=== PATIENT | female | born 1960 | race Caucasian/White ===

== ENCOUNTER 2020-02-21 12:48 | Emergency (ER) | payer OTHER, SELFPAY ==
--- NOTE | ~2020-02-21 | XR_ITS ---
EXAMINATION: [id number] DATE: 02/21/2020 13:20 INDICATION: Anterior right rib pain TECHNIQUE: A frontal inspiratory view of the chest and 4 views of the right ribs were obtained. COMPARISON: Chest radiograph dated FINDINGS: No rib fractures identified. No pneumothorax. No focal infiltrates, pleural effusion or pulmonary raul ma. Cardiomediastinal silhouette is normal. Post cystectomy clips the right upper quadrant. IMPRESSION: 1. No rib fracture or acute cardiopulmonary disease. Reviewed, dictated and finalized at location A.
[2020-02-21 12:57] VITALS: BP 182/76; PULSE 76; RESP 18; TEMP 36.2; O2SAT 100
--- NOTE | 2020-02-21 13:13 | ED.GENADULT ---
HPI - General Adult General Chief complaint: Unspecified Stated complaint: injured rib Time Seen by Provider: 02/21/20 13:13 Source: patient and RN notes reviewed Mode of arrival: ambulatory Limitations: no limitations History of Present Illness HPI narrative: 59 year old female who presents to [facility] care with complaints of right anterior chest rib pain since Thursday. Patient states she was lying on floor with daughter and daughter pushed herself up to standing position having her hand on the patient right upper back region, patient states that she felt a pop and has been experiencing pain to right anterior lateral right chest since. Patient denies any shortness of breat, states pain increases with movement and deep inspiration. Patient denies any hormone use, recent travel or history of blood clots or blood clotting disease. Patient has clear respirations on auscultation, no tachypnea or accessory muscle use, SAO2 100% on room air. Patient states that pain has been constant since Thursday. MD complaint: right anterior rib pain Onset (ago): day(s) (4-5 days) Location: chest (right anterior rib region) and right Radiation: non-radiation Severity: moderate Severity scale (1-10): 6 Quality: aching Pain Consistency: constant Relieving factors: rest Exacerbating factors: movement and other (deep inspiration) Associated symptoms: denies other symptoms Treatments prior to arrival: NSAID Related Data Allergies Allergy/AdvReac Type Severity Reaction Status Date / Time No Known Allergies Allergy Verified 02/21/20 13:03 Review of Systems Review of Systems: Narrative: CONSTITUTIONAL: Denies fever, chills, or sweats. EYES: Denies visual changes, redness, or discharge. ENT: Denies rhinorrhea, congestion, sore throat, or otalgia. CARDIOVASCULAR: positive for right anterior chest pain,no palpitations, or edema. RESPIRATORY: Denies cough or dyspnea. GASTROINTESTINAL: Denies abdominal pain, nausea, vomiting, or diarrhea. GENITOURINARY: Denies dysuria or hematuria. SKIN: Denies rash or itching. MUSCULOSKELETAL: Denies back pain, joint pain, or myalgia. NEUROLOGIC: Denies headache, numbness, or weakness. PSYCHIATRIC: Denies anxiety or depression. All systems reviewed & are unremarkable except as noted in HPI and below PMFSH Past Medical History Medical History (Updated 02/22/20 @ 15:09 by Angie Franklin NP) Diabetes Hyperlipidemia Hypertension Seasonal allergies Surgical History Surgical History (Updated 02/22/20 @ 15:11 by Angie Franklin NP) H/O section History of cholecystectomy S/P laparoscopic procedure Social History Social History (Updated 02/22/20 @ 15:11 by Angie Franklin NP) Smoking status: Never smoker Living arrangements: with family Gender identity (if verbalized by the patient): Female Comments At time of signature, agree with nursing past medical, surgical, social history. There is no relevant family history pertinent to the presenting complaint Exam Narrative: Exam Narrative: GENERAL: Well-appearing, well-nourished, and in no acute distress. HEAD: Normocephalic, atraumatic. EYES: PERRLA and EOMI. ENT: Nares clear, no rhinorrhea or epistaxis. Mucous membranes moist. NECK: Supple.no lymphadenopathy CHEST: Clear to auscultation. No respiratory distress.SAO2 100% on room air, discomfort to right anterior lateral chest along ribs increases with coughing, sneezing, movement and deep breathing, no dyspnea voiced HEART: Regular rate and rhythm. No murmur heard. Normal peripheral pulses. ABDOMEN: Soft, nontender, nondistended, normal active bowel sounds. EXTREMITIES: Normal range of motion. No edema. SKIN: Warm, dry, no rash. NEURO: No focal deficits. Alert and oriented x3. Course Vital Signs Vital signs: Vital Signs Temperature 36.2 C L 02/21/20 12:57 Pulse Rate 76 02/21/20 12:57 Respiratory Rate 18 02/21/20 12:57 Blood Pressure 182/76 H 02/21/20 12:57 Pulse Oximetry 100 07/
== END 2020-02-21 14:06 | disposition home or self-care (01) ==
PROVIDERS: Emergency Provider Registered Nurse; PCP Family Medicine
DX: M94.0 Chondrocostal junction syndrome [Tietze] (principal); R07.89 Other chest pain; E11.9 Type 2 diabetes mellitus without complications; E78.5 Hyperlipidemia, unspecified; I10 Essential (primary) hypertension
CPT/HCPCS: 71101; 99213; G0463

== ENCOUNTER 2020-07-30 14:28 | Emergency (ER) | payer OTHER, SELFPAY ==
--- NOTE | ~2020-07-30 | XR_ITS ---
EXAMINATION: XR chest 2V EXAM DATE: 07/30/2020 14:52 INDICATION: CHEST PAIN, SOB; hx of asthma, diabetes type 2, HTN . TECHNIQUE: Frontal and lateral projections of the chest obtained and reviewed. There is no prior marleny dy for comparison. FINDINGS: The lungs are clear. There are no pleural effusions. The cardiomediastinal silhouette is within normal limits. There is no pneumothorax suspected. The bones and soft tissues are unremarkab le. There are cholecystectomy clips. IMPRESSION: No acute cardiopulmonary findings. Reviewed, dictated and finalized at location B. INSPECTOR
[2020-07-30 14:35] VITALS: BP 187/90; PULSE 80; RESP 20; TEMP 36.6; O2SAT 99
--- NOTE | 2020-07-30 14:53 | ECG_ITS ---
Measurements Intervals [place] Rate: 70 P: 38 TN: 148 QRS: 43 QRSD: 96 T: 21 QT: 381 QTc: 412 Interpretive Statements SINUS RHYTHM WITH SINUS ARRHYTHMIA POSSIBLE LEFT VENTRICULAR HYPERTROPHY MINIMAL Q WAVES- DIFFUSE LEADS BASELINE ARTIFACT- I, II, III, AVL BORDERLINE ECG Electronically Signed On 07-30-2020 15:27:03 BIG DATA ENGINEER by Luke Tan D.O.
--- NOTE | 2020-07-30 15:39 | ED.GENADULT ---
HPI - General Adult General Chief complaint: Chest Pain Stated complaint: chest pain/shoulder blade pain Source: patient and RN notes reviewed Limitations: no limitations History of Present Illness HPI narrative: The obese patient- a non-smoker/nondrinker on several meds,inc for RAD, AODM- presents with lightheadedness and pains. Patient states she has a variety of symptoms that began before she was on quarantine about 2 weeks ago, before getting to negative Covid test X2 midmonth. She complains of improving cough, myalgias with headache, lightheadedness foggy, associated with palpitations and chest heaviness that last for seconds and occurs at rest. Heaviness is at anterior and posterior upper chest, especially in mostly posteriorly. Palpitations occurred intermittently about at most biweekly, with a heart rate measured [on her iWatch ] up to 140's. Symptoms are mild but persistent, unrelieved with a course of steroids; no sputum changes, precordial CP, calf pain/edema, S OB loss of taste/smell. Patient declines and repeatedly advised to go to higher-level care facility to higher level testing- because for early diagnosis of serious problems [ACS, A. fib, metabolic, etc.] clear specific symptoms do not develope until later Related Data Home Medications Medication Instructions Recorded Confirmed albuterol sulfate 2 puff INHALATION Q4-6H PRN 07/30/20 07/30/20 amlodipine 10 mg PO DAILY 07/30/20 07/30/20 atorvastatin 10 mg PO DAILY 07/30/20 07/30/20 cholecalciferol (vitamin D3) 50 mcg PO DAILY 07/30/20 07/30/20 [Vitamin D3] metformin 500 mg PO BID 07/30/20 07/30/20 metoprolol tartrate 50 mg PO BID 07/30/20 07/30/20 oxybutynin chloride 5 mg PO BID 07/30/20 07/30/20 prednisone 20 mg PO .ASDIRECTED 07/30/20 07/30/20 Allergies Allergy/AdvReac Type Severity Reaction Status Date / Time No Known Allergies Allergy Verified 07/30/20 14:41 Review of Systems Review of Systems: Narrative: General/Constitutional: No weight loss,fever Eyes: N0: Redness,discharge Ears/Nose/Throat: No: Epistaxis,ear discharge Respiratory: Denies: Hemoptysis Gastrointestinal: No Vomiting, Bleeding-rectal Skin: No Lumps, eruption Neurologic: No Focal Weakness,Sz Hematologic: Denies: Petechiae/Purpura Psychiatric: No: Suicida ideationl All Other Systems: Reviewed and Negative [facility] Past Medical History Medical History (Updated 07/31/20 @ 00:00 by Background Daemon) Diabetes Hyperlipidemia Hypertension Seasonal allergies Surgical History Surgical History (Updated 02/22/20 @ 15:11 by Angie Franklin NP) H/O section History of cholecystectomy S/P laparoscopic procedure Social History Social History (Updated 02/22/20 @ 15:11 by Angie Franklin NP) Smoking status: Never smoker Gender identity (if verbalized by the patient): Female Comments At time of signature, agree with nursing past medical, surgical, social and family history. There is no relevant family history pertinent to the presenting complaint Exam Narrative: Exam Narrative: General Appearance: Well/obese appearing, Conjunctiva clear Ears: External ear normal Nose: Normal nose Mouth/Throat: Normal appearing, Normal lips Neck: Supple Respiratory: Airway patent, No respiratory distress, CTA Cardiovascular: RRR no JVD Abdomen: Soft, Non-tender, No massess, No organomegaly Musculoskeletal: Full strength Skin: Warm, Dry Neurological: A&O x3, , Normal affect Course Course Emergency Course: Films visualized, interpreted by radiologist, agree, normal see report EKG: Sinus rhythm at 70, [place] 0.148, possible LVH, nonspecific ST-T's Vital Signs Vital signs: Vital Signs Temperature 97.9 F 07/30/20 14:35 Pulse Rate 80 07/30/20 14:35 Respiratory Rate 20 07/30/20 14:35 Blood Pressure 187/90 H 07/30/20 14:35 Pulse Oximetry 99 07/30/20 14:35 Temperature 97.9 F 07/30/20 14:35 Pulse Rate 80 07/30/20 14:35 Re
== END 2020-07-30 15:45 | disposition home or self-care (01) ==
PROVIDERS: Emergency Provider Emergency Medicine; PCP Family Medicine
DX: R00.2 Palpitations (principal); E11.9 Type 2 diabetes mellitus without complications; E78.5 Hyperlipidemia, unspecified; I10 Essential (primary) hypertension
CPT/HCPCS: 71046; 93005; 99213; G0463

== ENCOUNTER 2020-12-20 13:49 | Emergency (ER) | payer OTHER, SELFPAY ==
[2020-12-20 13:54] VITALS: BP 164/70; PULSE 86; RESP 16; TEMP 36.8; O2SAT 98
--- NOTE | 2020-12-20 14:13 | ED.GENADULT ---
HPI - General Adult General Chief complaint: Skin/Abscess/Foreign Body Stated complaint: Rash Time Seen by Provider: 12/20/20 14:07 Source: patient and RN notes reviewed Mode of arrival: ambulatory Limitations: no limitations History of Present Illness HPI narrative: 60-year-old female presents with complaints of skin color, dry, raised, and itching rash to upper body for 1 day. Steffany reports itching throughout body for 1 week and notice rash this morning. Routine Tameka and baby oil without relief. History of dry skin. Denies new changes in personal hygiene products or laundry detergent. No new foods or medications. No swelling, burning, bleeding, or drainage. Denies fever, chills, headaches, weakness, fatigue, myalgia, facial swelling, or tongue swelling. Denies chest pain or dyspnea. Tolerating po intake well. Remains active. The patient reports she have not been diagnosed with COVID-19. The patient reports she received 2 Pfizer vaccines, last 11/01/2020. The patient reports she is not waiting for the results of a COVID-19 lab test. The patient reports she do not have a new or worsening cough. The patient reports she do not have any rhinorrhea, congestion, sore throat, loss of taste or smell, nausea, vomiting, abdominal pain, and diarrhea. Denies recent traveling. Denies concerns for COVID-19 or exposures been home with limited outdoor exposure except for essential household needs, work, and return home. At this time, patient is not suspected of having COVID-19. Some parts of this dictation were generated by voice recognition software and may contain typographical and/or grammatical inaccuracies. Related Data Home Medications Medication Instructions Recorded Confirmed albuterol sulfate 2 puff INHALATION Q4-6H PRN 07/30/20 12/20/20 amlodipine 10 mg PO DAILY 07/30/20 12/20/20 atorvastatin 10 mg PO DAILY 07/30/20 12/20/20 cholecalciferol (vitamin D3) 50 mcg PO DAILY 07/30/20 12/20/20 [Vitamin D3] metformin 500 mg PO BID 07/30/20 12/20/20 metoprolol tartrate 50 mg PO BID 07/30/20 12/20/20 oxybutynin chloride 5 mg PO BID 07/30/20 12/20/20 blood sugar diagnostic [OneTouch 12/20/20 12/20/20 Verio test strips] dulaglutide [Trulicity] 0.75 mg SUBCUT WE 12/20/20 12/20/20 fexofenadine 60 mg PO DAILY 12/20/20 12/20/20 losartan 50 mg PO DAILY 12/20/20 12/20/20 olopatadine [Pataday Once Daily 1 drp EACH EYE QAM 12/20/20 12/20/20 Relief] Allergies Allergy/AdvReac Type Severity Reaction Status Date / Time No Known Allergies Allergy Verified 12/20/20 13:54 Review of Systems Review of Systems: Narrative: CONSTITUTIONAL: Denies fever, chills, sweats. EYES: Denies visual changes, redness, discharge. ENT: Denies rhinorrhea, congestion, sore throat, otalgia. CARDIOVASCULAR: Denies chest pain, palpitations, edema. RESPIRATORY: Denies dyspnea, wheezing, cough. GASTROINTESTINAL: Denies abdominal pain, nausea, vomiting, diarrhea. GENITOURINARY: Denies dysuria, hematuria, abnormal discharge SKIN: Complains of skin color, dry, raised, and itching rash to upper body. Denies drainage. MUSCULOSKELETAL: Denies acute back pain, joint pain, or myalgia. NEUROLOGIC: Denies numbness or focal weakness. PSYCHIATRIC: Denies anxiety or depression. All other systems reviewed & are unremarkable except as noted in HPI and below. [facility] Past Medical History Medical History Diabetes Hyperlipidemia Hypertension Seasonal allergies Surgical History Surgical History H/O section History of cholecystectomy S/P laparoscopic procedure Family History Family History (Updated 12/20/20 @ 14:30 by KEENA Calles) Father , at age 86 related to aspiration Hypertension Mother , [place] at age 51 Hypertension Diabetes mellitus Heart disease Acute myocardial infarction Social History
== END 2020-12-20 14:50 | disposition home or self-care (01) ==
PROVIDERS: Emergency Provider Nurse Practitioner Family; PCP Family Medicine
DX: L42 Pityriasis rosea (principal); E11.9 Type 2 diabetes mellitus without complications; E78.5 Hyperlipidemia, unspecified; I10 Essential (primary) hypertension
CPT/HCPCS: 99213; G0463

== ENCOUNTER 2023-07-07 16:31 | Emergency (ER) | payer OTHER, SELFPAY ==
--- NOTE | ~2023-07-07 | XR_ITS ---
EXAMINATION: XR chest 2V Exam Date/Time: 07/07/2023 17:05 FINISHING MANAGER HISTORY: sob, cough, FLU LIKE SYMPTONS Comparison: 07/30/2020. RESULT: Lines, tubes, and devices: None. Lungs and pleura: Ill-defined reticular nodular opacities in the left mid and lower lung. Subsegment al consolidation in the left upper lobe. Cardiomediastinal silhouette: Stable. Other: No acute osseous or upper abdominal finding. IMPRESSION: Pulmonary opacities concerning for pneumonia, to include atypical and viral etiologies. Reviewed, dictated and finalized at location K. SHING MANAGER IMPRESSION: Pulmonary opacities concerning for pneumonia, to include atypical and viral atilio ologies.
[2023-07-07 16:39] VITALS: BP 182/79; PULSE 94; RESP 28; TEMP 37.2; O2SAT 99
--- NOTE | 2023-07-07 16:42 | ECG_ITS ---
Measurements Intervals [place] Rate: 89 P: 48 TN: 156 QRS: 60 QRSD: 90 T: 44 QT: 345 QTc: 420 Interpretive Statements SINUS RHYTHM MINIMAL Q WAVES- ANTEROLAT/INF LEADS NONSPECIFIC T-WAVE ABNORMALITY- ANTERIOR LEADS BORDERLINE ECG COMPARED TO ECG 07/30/2020 14:42:39 NO SIGNIFICANT CHANGES Electronically Signed On 07-07-2023 17:07:53 SOFTWARE DATABASE ARCHITECT by Luke Tan D.O.
[2023-07-07 17:21] LABS: Basophils Percent Auto 0.6 % (0.2-1.2); Eosinophils Percent Auto 0.3 % (0-4.4); Hematocrit 39.2 % (37.0-47.0); Hemoglobin 12.3 g/dL (12.0-15.0); Immature Granulocyte Absolute 0.04 K/mm3 (0.00-0.031); Immature Granulocyte Percent A 0.6 % (0-0.5); Lymphocytes Percent Auto 16.5 % (18.3-44.2); Mean Corpuscular HGB Conc 31.4 g/dl (32-36); Mean Corpuscular Hemoglobin 28.3 pg (26-34); Mean Corpuscular Volume 90.1 fl (80-100); Mean Platelet Volume 9.4 fl (7.4-10.4); Monocytes Absolute Auto 0.7 K/mm3 (0.1-0.6); Monocytes Percent Auto 8.9 % (2.6-8.5); Neutrophils Absolute Auto 5.3 K/mm3 (1.3-6.7); Neutrophils Percent Auto 73.1 % (45.5-73.1); Platelet Count Result 282 k/mm3 (150-375); Red Blood Count 4.35 M/mm3 (4.2-5.4); Red Cell Distribution Width 12.8 % (11.5-14.5); White Blood Count 7.3 K/mm3 (4.5-10.0)
[2023-07-07 17:30] LABS: Alanine Aminotransferase 48 U/L (6-35); Albumin Level 4.4 g/dL (3.5-5.1); Alkaline Phosphatase 99 U/L (38-126); Anion Gap 10 mmol/L (8-16); Aspartate Amino Transferase 43 U/L (14-36); Bilirubin,Total 0.7 mg/dL (0.2-1.3); Blood Urea Nitrogen 13 mg/dL (7-17); Calcium 10.3 mg/dL (8.4-10.2); Carbon Dioxide 26 mmol/L (22-30); Chloride 102 mmol/L (98-107); Estimated CRCL calculation 78 ml/min; Estimated Glomerular Filt Rate > 60; Glucose 85 mg/dL (65-110); Potassium 3.5 mmol/L (3.4-5.0); Sodium 138 mmol/L (137-145)
[2023-07-07 17:56] LABS: Influenza A QL RT-PCR Negative (Negative); Influenza B QL RT-PCR Negative (Negative); RSV RNA, RT-PCR Negative (Negative); SARS-CoV-2 RNA PCR Negative (Negative)
--- NOTE | 2023-07-07 18:51 | ED.URI ---
HPI - URI/Sore Throat General Chief Complaint: Upper Respiratory Infection Stated Complaint: shortness of breath Time Seen by Provider: 07/07/23 18:41 History of Present Illness HPI Narrative: Pt presents with a fever and cough for the last few days. Pt has history of asthma and uses nebulizer which is not helping. Pt has some body aches as well and is concerned she may have pneumonia. Related Data Home Medications Medication Instructions Recorded Confirmed albuterol sulfate 90 mcg/actuation 2 puff inhalation Q4-6H PRN 07/30/20 12/20/20 aerosol inhaler Shortness Of Breath amlodipine 10 mg tablet 10 mg PO DAILY 07/30/20 12/20/20 atorvastatin 10 mg tablet 10 mg PO DAILY 07/30/20 12/20/20 cholecalciferol (vitamin D3) 50 50 mcg PO DAILY 07/30/20 12/20/20 mcg (2,000 unit) tablet (Vitamin D3) metformin 500 mg tablet 500 mg PO BID 07/30/20 12/20/20 metoprolol tartrate 50 mg tablet 50 mg PO BID 07/30/20 12/20/20 oxybutynin chloride 5 mg tablet 5 mg PO BID 07/30/20 12/20/20 blood sugar diagnostic (OneTouch 12/20/20 12/20/20 Verio test strips) dulaglutide 0.75 mg/0.5 mL 0.75 mg subcut WE 12/20/20 12/20/20 subcutaneous pen injector (Trulicity) fexofenadine 30 mg tablet 60 mg PO DAILY 12/20/20 12/20/20 losartan 50 mg tablet 50 mg PO DAILY 12/20/20 12/20/20 olopatadine 0.2 % eye drops 1 drp EACH EYE QAM 12/20/20 12/20/20 (Pataday Once Daily Relief) Allergies Allergy/AdvReac Type Severity Reaction Status Date / Time No Known Allergies Allergy Verified 12/20/20 13:54 Review of Systems Review of Systems: All systems reviewed & are unremarkable except as noted in HPI and below PMFSH Past Medical History Medical History Diabetes Hyperlipidemia Hypertension Seasonal allergies Surgical History Surgical History H/O section History of cholecystectomy S/P laparoscopic procedure Family History Family History (Updated 12/20/20 @ 14:30 by KEENA Calles) Father , at age 86 related to aspiration Hypertension Mother , [place] at age 51 Hypertension Diabetes mellitus Heart disease Acute myocardial infarction Social History Social History (Updated 12/20/20 @ 14:31 by KEENA Calles) Smoking status: Never smoker Tobacco type: cigarettes Second hand tobacco smoke exposure: No Alcohol intake: current Substance use: never Substance use type: does not use Living arrangements: with family Occupation/Education: occupation Gender identity (if verbalized by the patient): Female Sexual Orientation (if Verbalized by the Patient): Straight or Heterosexual Exam Const: General: healthy appearing and no acute distress Nutritional Appearance: well nourished Orientation/consciousness: patient oriented x3 Limitations: no limitations Eyes: Conjunctivae: conjunctivae normal EOM: EOMs intact bilaterally Chest: Chest palpation & inspection: normal inspection of the chest Resp: Effort & Inspection: normal respiratory effort Auscultation: clear to auscultation bilaterally Cardio: Rate: regular rate Rhythm: regular rhythm GI: GI Palp: Yes Soft to palpation Auscultation: normal bowel sounds Skin: General skin exam: normal color Rashes: no rashes Wounds: no wounds Neuro: General: patient oriented x3, moves all extremities and no focal motor deficits Speech: normal speech Extrem: General: normal to inspection and no clubbing, cyanosis or edema Psych: Mental Status: mental status grossly normal Affect: normal affect Attitude: cooperative Course Vital Signs Vital signs: Vital Signs Temperature 98.9 F 07/07/23 16:39 Pulse Rate 94 07/07/23 16:39 Respiratory Rate 28 H 07/07/23 16:39 Blood Pressure 182/79 H 07/07/23 16:39 Pulse Oximetry 99 07/07/23 16:39 Oxygen Delivery Room Air 07/07/23 16:39 Tem
[2023-07-07 19:20] VITALS: BP 172/84; PULSE 84; RESP 22; O2SAT 95
== END 2023-07-07 19:23 | disposition home or self-care (01) ==
PROVIDERS: Emergency Provider Emergency Medicine
DX: J18.9 Pneumonia, unspecified organism (principal); Z20.822 Contact with and (suspected) exposure to COVID-19; E11.9 Type 2 diabetes mellitus without complications; Z79.84 Long term (current) use of oral hypoglycemic drugs; I10 Essential (primary) hypertension; E78.5 Hyperlipidemia, unspecified
CPT/HCPCS: 36415; 71046; 80053; 85025; 87637; 93005; 99284